=== PATIENT | male | born 1950 | race Caucasian/White ===

== ENCOUNTER 2021-08-16 12:01 | Outpatient (CLI) | payer MEDICARE, BC | END 2021-08-16 12:02 | disposition home or self-care (01) | LOC: NAV CT 12:01 | PROVIDERS: ATTEND Internal Medicine | DX: M54.6 Pain in thoracic spine (principal); M54.16 Radiculopathy, lumbar region; R93.7 Abnormal findings on diagnostic imaging of other parts of musculoskeletal system; S22.071A Stable burst fracture of T9-T10 vertebra, initial encounter for closed fracture; S22.089A Unspecified fracture of T11-T12 vertebra, initial encounter for closed fracture; M48.04 Spinal stenosis, thoracic region; I77.819 Aortic ectasia, unspecified site; I70.90 Unspecified atherosclerosis; N20.0 Calculus of kidney; W19.XXXA Unspecified fall, initial encounter; Z98.890 Other specified postprocedural states | CPT/HCPCS: 72128; 72131 ==